=== PATIENT | male | born 1970 | race Asian ===

== ENCOUNTER 2016-06-10 09:15 | Outpatient (CLI) | payer OTHER | END 2016-06-10 09:16 | disposition home or self-care (01) | DX: K22.8 Other specified diseases of esophagus (principal); R13.10 Dysphagia, unspecified ==

== ENCOUNTER 2017-10-21 07:26 | Outpatient (CLI) | payer OTHER ==
[2017-10-21 12:37] LABS: CALCIUM 8.8 mg/dL (8.5-10.3); CARBON DIOXIDE - CO2 29 mmol/L (21-32); CHLORIDE 105 mmol/L (101-111); GLUCOSE 98 mg/dL (70-100); SODIUM 139 mmol/L (135-145)
[2017-10-21 13:11] LABS: ALBUMIN 3.7 g/dL (3.2-5.5); ALBUMIN/GLOBULIN RATIO 1.2 (1.0-2.2); ALKALINE PHOSPHATASE 52 IU/L (42-121); ALT ALANINE AMINOTRANSFERASE 30 IU/L (10-60); AST ASPARTATE AMINOTRANSFERASE 30 IU/L (10-42); BILIRUBIN,TOTAL 1.4 mg/dL (0.2-1.0); BUN - BLOOD UREA NITROGEN 16 mg/dL (6-20); CHOL/HDL RATIO 2.7 (<5.0); CHOLESTEROL 175 mg/dL; CREATININE 0.9 mg/dL (0.6-1.2); GFR - MDRD 90 (>89); HDL CHOLESTEROL 65 mg/dL; LDL CHOLESTEROL,CALCULATED 90 mg/dL; LDL/HDL RATIO 1.4 (<3.6); TOTAL PROTEIN 6.7 g/dL (6.7-8.2); VLDL CHOLESTEROL 20 mg/dL
[2017-10-22 13:46] LABS: HEPATITIS A IGM NON-REACTIVE (NON-REACTIVE); HEPATITIS B CORE ANTIBODY IGM NON-REACTIVE (NON-REACTIVE); HEPATITIS B SURFACE ANTIGEN REACTIVE (NON-REACTIVE); HEPATITIS C ANTIBODY NON-REACTIVE (NON-REACTIVE)
== END 2017-10-21 07:27 | disposition home or self-care (01) ==
LOC: LAB.WCP 07:26
PROVIDERS: ATTEND Family Medicine
DX: E78.5 Hyperlipidemia, unspecified (principal); E80.6 Other disorders of bilirubin metabolism; Z12.5 Encounter for screening for malignant neoplasm of prostate
CPT/HCPCS: 36415; 80053; 80061; 80074; 83721; 84153

== ENCOUNTER → 2018-01-28 | Outpatient (CLI) | payer OTHER | LOC: LAB.WCP 08:00 | PROVIDERS: ATTEND Physician Assistant Medical | DX: E80.6 Other disorders of bilirubin metabolism (principal) | CPT/HCPCS: 36415; 86317; 86704 ==

== ENCOUNTER 2018-02-05 17:47 | Outpatient (CLI) | payer OTHER ==
--- NOTE | 2018-02-08 08:47 | Ultrasound Report ---
Reason: HEPATITIS B Procedure Date: 02/05/2018 Accession Number: [id number] / [id number] Procedure: US - Abdomen Limited CPT Code: FULL RESULT: EXAM: ABDOMEN ULTRASOUND LIMITED, RUQ EXAM DATE: 02/05/2018 06:31 PM. CLINICAL HISTORY: HEPATITIS B. COMPARISON: None. TECHNIQUE: Real-time scanning was performed with static images obtained. FINDINGS: Liver: Normal in size , heterogeneous, coarse 13.3 cm. Main portal vein flow: Hepatopetal. Biliary System: CBD measures 5.7 mm. No intrahepatic or extrahepatic ductal dilatation. Other: None. IMPRESSION: Mildly heterogeneous coarse liver without focal or global abnormality. Possible gallstones [facility]
== END 2018-02-05 17:48 | disposition home or self-care (01) ==
LOC: DI 17:47
PROVIDERS: ATTEND Family Medicine
DX: B19.10 Unspecified viral hepatitis B without hepatic coma (principal)
CPT/HCPCS: 76705

== ENCOUNTER 2018-03-12 14:37 | Outpatient (CLI) | payer OTHER ==
[2018-03-12 19:02] LABS: BASOPHILS % (AUTO) 0.5 %; EOSINOPHILS # (AUTO) 0.1 10^3/uL (0.0-0.7); EOSINOPHILS % (AUTO) 1.1 %; HGB - HEMOGLOBIN 16.2 g/dL (14.0-18.0); LYMPHOCYTES # (AUTO) 1.5 10^3/uL (1.5-3.5); LYMPHOCYTES % (AUTO) 26.9 %; MEAN CORPUSCULAR HEMOGLOBIN 30.5 pg (27.0-31.0); MEAN CORPUSCULAR HGB CONC 32.8 g/dL (32.0-36.0); MEAN CORPUSCULAR VOLUME 92.9 fL (80.0-94.0); MEAN PLATELET VOLUME 9.9 fL (7.4-11.4); MONOCYTES # (AUTO) 0.4 10^3/uL (0.0-1.0); MONOCYTES % (AUTO) 6.4 %; NEUTROPHILS # (AUTO) 3.7 10^3/uL (1.5-6.6); NEUTROPHILS % (AUTO) 65.1 %; PLT - PLATELET COUNT 175 10^3/uL (130-450); RED CELL DISTRIBUTION WIDTH 13.4 % (12.0-15.0); WHITE BLOOD COUNT 5.7 x10^3/uL (4.8-10.8)
[2018-03-12 19:10] LABS: PT - PROTHROMBIN TIME 11.5 secs (9.9-12.6)
== END 2018-03-12 23:59 | disposition home or self-care (01) ==
LOC: LAB.WCP 14:37
PROVIDERS: ATTEND Internal Medicine
DX: B18.1 Chronic viral hepatitis B without delta-agent (principal)
CPT/HCPCS: 36415; 81599; 85025; 85610; 86707; 87350; 87517

== ENCOUNTER 2018-08-14 08:18 | Outpatient (CLI) | payer OTHER ==
--- NOTE | 2018-08-14 22:47 | Ultrasound Report ---
Reason: HEPATITIS B CHRONIC Procedure Date: 08/14/2018 Accession Number: [id number] / [id number] Procedure: US - Abdomen Limited CPT Code: FULL RESULT: EXAM: ABDOMEN ULTRASOUND LIMITED, RUQ EXAM DATE: 08/14/2018 08:50 AM. CLINICAL HISTORY: HEPATITIS B CHRONIC. COMPARISON: ABDOMEN LIMITED 02/05/2018 5:57 PM. TECHNIQUE: Real-time scanning was performed with static images obtained. FINDINGS: Liver: Liver parenchyma is heterogeneous and mildly hyperechoic. No discrete liver masses or intrahepatic bile duct dilation. However, evaluation for masses is limited secondary to the echogenicity. Right liver measures 16 cm. Main portal vein flow: Hepatopetal. Gallbladder: Normal. No stones, wall thickening, or sonographic Santacruz's sign. Biliary System: CBD measures 5 mm. No intrahepatic or extrahepatic ductal dilatation. Right kidney: Per report, absent. Other: Se limited due to bowel gas. IMPRESSION: 1. Mildly echogenic fatty liver. No mass. 2. Normal gallbladder and common bile duct. [facility]
== END 2018-08-14 08:19 | disposition home or self-care (01) ==
LOC: DI 08:18
PROVIDERS: ATTEND Internal Medicine Gastroenterology
DX: B18.1 Chronic viral hepatitis B without delta-agent (principal); K76.0 Fatty (change of) liver, not elsewhere classified
CPT/HCPCS: 76705

== ENCOUNTER 2020-08-03 07:09 | Outpatient (CLI) | payer OTHER ==
[2020-08-03 07:37] LABS: PT - PROTHROMBIN TIME 11.5 secs (9.9-12.6)
[2020-08-03 07:41] LABS: ALBUMIN 4.3 g/dL (3.2-5.5); ALBUMIN/GLOBULIN RATIO 1.5 (1.0-2.2); BILIRUBIN,TOTAL 1.3 mg/dL (0.2-1.0); CALCIUM 9.1 mg/dL (8.5-10.3); POTASSIUM 4.4 mmol/L (3.5-5.0); TOTAL PROTEIN 7.2 g/dL (6.7-8.2)
[2020-08-03 07:45] LABS: BASOPHILS % (AUTO) 0.7 %; EOSINOPHILS # (AUTO) 0.1 10^3/uL (0.0-0.7); EOSINOPHILS % (AUTO) 2.5 %; HCT - HEMATOCRIT 45.2 % (42.0-52.0); HGB - HEMOGLOBIN 15.1 g/dL (14.0-18.0); LYMPHOCYTES # (AUTO) 1.5 10^3/uL (1.5-3.5); LYMPHOCYTES % (AUTO) 35.8 %; MEAN CORPUSCULAR HEMOGLOBIN 30.9 pg (27.0-31.0); MEAN CORPUSCULAR HGB CONC 33.4 g/dL (32.0-36.0); MEAN CORPUSCULAR VOLUME 92.4 fL (80.0-94.0); MONOCYTES # (AUTO) 0.3 10^3/uL (0.0-1.0); MONOCYTES % (AUTO) 8.3 %; NEUTROPHILS # (AUTO) 2.1 10^3/uL (1.5-6.6); NEUTROPHILS % (AUTO) 52.5 %; PLT - PLATELET COUNT 131 10^3/uL (130-450); RED BLOOD COUNT 4.89 10^6/uL (4.70-6.10); RED CELL DISTRIBUTION WIDTH 12.8 % (12.0-15.0); WHITE BLOOD COUNT 4.1 x10^3/uL (4.8-10.8)
[2020-08-04 12:32] LABS: HEPATITIS B SURFACE ANTIGEN REACTIVE (NON-REACTIVE)
== END 2020-08-03 07:10 | disposition home or self-care (01) ==
LOC: LAB 07:09
PROVIDERS: ATTEND Internal Medicine
DX: B18.1 Chronic viral hepatitis B without delta-agent (principal)
CPT/HCPCS: 36415; 80053; 82105; 85025; 85610; 86317; 86708; 87340

== ENCOUNTER 2020-08-03 07:13 | Outpatient (CLI) | payer OTHER ==
--- NOTE | 2020-08-03 09:27 | Ultrasound Report ---
PROCEDURE: Abdomen Limited INDICATIONS: HEP B, CHRONIC TECHNIQUE: Real-time focused scanning was performed of the abdomen, with image documentation. COMPARISON: Abdominal ultrasound 08/14/2018 and 02/05/2018 FINDINGS: The liver is normal and craniocaudad length at 14.9 cm. No hepatic mass lesion is identifi ed but there is mildly coarse hyperechoic echotexture, consistent with fatty infiltration and possibl e superimposed cirrhotic change. Capsular nodular margination is not identified, however. The gallbladder is normal in the common bile duct is 5 mm in caliber, and normal. The pancreas visual ized appears normal. 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 IMPRESSION: Limited ultrasound at clinician request. Congenitally absent right kidney. Mild fatty infiltration wi thin the liver but without evidence of hepatomegaly or capsular nodular margination. Reviewed by: Harshil mE MD on 08/03/2020 9:26 AM PDT Approved by: Harshil Em MD on 08/03/2020 9:26 AM PDT Station ID: [id number]
== END 2020-08-03 07:14 | disposition home or self-care (01) ==
LOC: DI 07:13
PROVIDERS: ATTEND Internal Medicine
DX: K76.0 Fatty (change of) liver, not elsewhere classified (principal); Z90.5 Acquired absence of kidney; B18.1 Chronic viral hepatitis B without delta-agent
CPT/HCPCS: 36415; 80053; 82105; 85025; 85610; 86317; 86708; 87340

== ENCOUNTER 2020-08-10 08:00 | Outpatient (CLI) | payer OTHER ==
[2020-08-10 12:31] LABS: BASOPHILS % (AUTO) 0.6 %; EOSINOPHILS # (AUTO) 0.1 10^3/uL (0.0-0.7); EOSINOPHILS % (AUTO) 1.2 %; HGB - HEMOGLOBIN 15.8 g/dL (14.0-18.0); LYMPHOCYTES # (AUTO) 1.7 10^3/uL (1.5-3.5); LYMPHOCYTES % (AUTO) 34.5 %; MEAN CORPUSCULAR HEMOGLOBIN 30.9 pg (27.0-31.0); MEAN CORPUSCULAR HGB CONC 33.6 g/dL (32.0-36.0); MEAN PLATELET VOLUME 12.2 fL (7.4-11.4); MONOCYTES # (AUTO) 0.4 10^3/uL (0.0-1.0); MONOCYTES % (AUTO) 7.2 %; NEUTROPHILS # (AUTO) 2.8 10^3/uL (1.5-6.6); NEUTROPHILS % (AUTO) 56.3 %; PLT - PLATELET COUNT 148 10^3/uL (130-450); RED BLOOD COUNT 5.11 10^6/uL (4.70-6.10); RED CELL DISTRIBUTION WIDTH 12.8 % (12.0-15.0)
[2020-08-10 13:21] LABS: ALBUMIN 4.5 g/dL (3.2-5.5); ALBUMIN/GLOBULIN RATIO 1.6 (1.0-2.2); ALKALINE PHOSPHATASE 53 IU/L (42-121); ALT ALANINE AMINOTRANSFERASE 29 IU/L (10-60); AST ASPARTATE AMINOTRANSFERASE 29 IU/L (10-42); BILIRUBIN,TOTAL 1.2 mg/dL (0.2-1.0); BUN - BLOOD UREA NITROGEN 24 mg/dL (6-20); CALCIUM 9.3 mg/dL (8.5-10.3); CARBON DIOXIDE - CO2 28 mmol/L (21-32); CHLORIDE 105 mmol/L (101-111); CHOL/HDL RATIO 2.6 (<5.0); CHOLESTEROL 178 mg/dL; CREATININE 1.1 mg/dL (0.6-1.2); GFR - MDRD 70 (>89); GLUCOSE 101 mg/dL (70-100); HDL CHOLESTEROL 69 mg/dL; LDL CHOLESTEROL,CALCULATED 96 mg/dL; LDL/HDL RATIO 1.4 (<3.6); POTASSIUM 4.1 mmol/L (3.5-5.0); SODIUM 141 mmol/L (135-145); TOTAL PROTEIN 7.4 g/dL (6.7-8.2); TRIGLYCERIDES 67 mg/dL; VLDL CHOLESTEROL 13 mg/dL
[2020-08-10 13:26] LABS: THYROID STIMULATING HORMONE 1.46 uIU/mL (0.34-5.60)
== END 2020-08-10 23:59 | disposition home or self-care (01) ==
LOC: LAB.WCP 08:00
PROVIDERS: ATTEND Nurse Practitioner Family
DX: B19.10 Unspecified viral hepatitis B without hepatic coma (principal); E80.6 Other disorders of bilirubin metabolism; Z12.5 Encounter for screening for malignant neoplasm of prostate; E78.5 Hyperlipidemia, unspecified
CPT/HCPCS: 36415; 80053; 80061; 83721; 84153; 84443; 85025

== ENCOUNTER 2020-08-27 15:12 | Outpatient (CLI) | payer OTHER | END 2020-08-27 15:13 | disposition home or self-care (01) | LOC: LAB 15:12 | PROVIDERS: ATTEND Internal Medicine | DX: B18.1 Chronic viral hepatitis B without delta-agent (principal) | CPT/HCPCS: 36415; 81599; 87517 ==

== ENCOUNTER 2021-02-04 07:26 | Outpatient (CLI) | payer OTHER ==
[2021-02-04 12:35] LABS: ALBUMIN 4.3 g/dL (3.2-5.5); ALBUMIN/GLOBULIN RATIO 1.7 (1.0-2.2); BILIRUBIN,TOTAL 1.3 mg/dL (0.2-1.0); CALCIUM 9.3 mg/dL (8.5-10.3); CREATININE 1.1 mg/dL (0.6-1.2); TOTAL PROTEIN 6.8 g/dL (6.7-8.2)
[2021-02-04 12:38] LABS: BASOPHILS % (AUTO) 0.7 %; EOSINOPHILS # (AUTO) 0.1 10^3/uL (0.0-0.7); EOSINOPHILS % (AUTO) 2.2 %; HCT - HEMATOCRIT 43.3 % (42.0-52.0); HGB - HEMOGLOBIN 14.4 g/dL (14.0-18.0); LYMPHOCYTES # (AUTO) 1.6 10^3/uL (1.5-3.5); LYMPHOCYTES % (AUTO) 38.6 %; MEAN CORPUSCULAR HEMOGLOBIN 30.9 pg (27.0-31.0); MEAN CORPUSCULAR HGB CONC 33.3 g/dL (32.0-36.0); MEAN CORPUSCULAR VOLUME 92.9 fL (80.0-94.0); MONOCYTES # (AUTO) 0.4 10^3/uL (0.0-1.0); MONOCYTES % (AUTO) 9.9 %; NEUTROPHILS % (AUTO) 48.6 %; PLT - PLATELET COUNT 144 10^3/uL (130-450); RED BLOOD COUNT 4.66 10^6/uL (4.70-6.10); RED CELL DISTRIBUTION WIDTH 13.2 % (12.0-15.0); WHITE BLOOD COUNT 4.1 x10^3/uL (4.8-10.8)
== END 2021-02-04 23:59 | disposition home or self-care (01) ==
LOC: LAB.WCP 07:26
PROVIDERS: ATTEND Internal Medicine
DX: B18.1 Chronic viral hepatitis B without delta-agent (principal)
CPT/HCPCS: 36415; 80053; 81599; 85025; 87517